=== PATIENT | female | born 1995 | race Hispanic/Latino ===

== ENCOUNTER 2018-04-09 09:20 | Emergency (ER) | payer OTHER, MEDICAID, SELFPAY ==
[2018-04-09 09:31] VITALS: BP 112/65; PULSE 86; RESP 18; TEMP 36.9; O2SAT 100
--- NOTE | 2018-04-09 09:46 | ED_ITS ---
HPI - URI/Sore Throat General Chief Complaint: Upper Respiratory Symptoms Stated Complaint: HEADACHE, LEFT SIDE OF FACE NUMB Time Seen by Provider: 04/09/18 09:32 Source: patient Mode of arrival: ambulatory Limitations: no limitations History of Present Illness HPI Narrative: Patient is a 22-year-old female who presents with on head congestion and left-sided facial numbness. She said last night she is a little dizzy and lightheaded. Today is she also has a little lightheaded. She has got some left-sided ear pain no fevers no sinus pain no sore throat. She has not had any cough. She took some Aleve yesterday and went to sleep. She also is concerned she has been super emotional lately and they thought she may be home test was negative. She is not currently late on her menses. She has no abdominal pain. Related Data Allergies Allergy/AdvReac Type Severity Reaction Status Date / Time No Known Drug Allergies Allergy Verified 04/09/18 09:31 Review of Systems Review of Systems All systems reviewed & are unremarkable except as noted in HPI and below Constitutional Denies chills, Denies fever(s), Denies lethargy and Denies weakness ENT Ears, Nose, Mouth, and Throat: Reports as per HPI Cardiovascular Denies chest pain, Denies irregular heart rhythm, Denies lightheadedness, Denies palpitations, Denies dyspnea, Denies dyspnea on exertion and Denies orthopnea Respiratory Denies cough, Denies dyspnea, Denies dyspnea on exertion and Denies wheezing Gastrointestinal Gastrointestinal: Denies abdominal pain, Denies change in bowel habits, Denies diarrhea, Denies nausea and Denies vomiting Integumentary/Breasts Denies pruritus, Denies erythema, Denies rash and Denies wounds Neurologic Denies weakness Endocrine Denies palpitations Allergic/Immunologic Denies wheezing [facility] Medical History Healthy adult (Acute) Social History Smoking Status: Never smoker Exam Initial Vital Signs Initial Vital Signs: Vital Signs Temperature 98.5 F 04/09/18 09:31 Pulse Rate 86 04/09/18 09:31 Respiratory Rate 18 04/09/18 09:31 Blood Pressure 112/65 04/09/18 09:31 Pulse Oximetry 100 04/09/18 09:31 Const General: cooperative, healthy appearing, comfortable and well developed Orientation: alert, awake and oriented x3 HENMT Head: normal to inspection and normocephalic Ears: hearing grossly normal bilaterally and TM's normal bilaterally Nose: external nose normal Face and sinus: normal facial exam, sinuses nontender and face symmetric Mouth: oral mucosae normal Throat: posterior oropharynx normal, tonsils normal and uvula midline Eyes General: appearance normal, both eyes and all related structures Neck Neck: normal visual inspection, full ROM and no meningeal signs Chest Chest: normal inspection of the chest Resp Effort & Inspection: normal respiratory effort, able to speak in complete sentences, no respiratory distress and no use of accessory muscles Auscultation: clear to auscultation bilaterally, no rales, no rhonchi and no wheezes Cardio Rate: regular rate Rhythm: regular rhythm Heart Sounds: no click, no gallops, no murmurs and no rubs Pulses: normal peripheral pulses Skin General: no rashes or lesions noted, No jaundice and No petechiae Neuro General: alert, awake and oriented x3 Cranial Nerves: CN's II-XI intact bilaterally Course Vital Signs - 8 hr 04/09/18 09:31 Temperature 98.5 F Pulse Rate 86 Respiratory Rate 18 Blood Pressure 112/65 Pulse Oximetry 100 MDM - URI/Sore Throat Lab Data Attestation: I reviewed the patient's lab results. Point of Care Testing Test Results Negative Urine Dip Bedside Urine Glucose Negative Bedside Urine Bilirubin - Negative Bedside Urine Ketone - Negative Urine Specific [place] 1.010 Bedside Urine Occult Blood - Negative Bedside Urine pH 6.0 Bedside Urine Protein - Negative Bedside Urine Urobilinogen - Negative Bedside Urine Nitrite - Negative Bedside Urine Leukocytes - Negative Esterase Urine negative POC urine negative Discharge Plan Departure Patient Disposition: Home Clinical Impression: Acute viral syndrome Instructions: DI for Viral Upper Respiratory Infection -- Adult Activity Restrictions/Additional Instructions: *You have been diagnosed with viral syndrome *What to do: At this time no antibiotics indicated. Let this run its course. Dehydrated fever control. If continuing to have symptoms after 7 days may require further intervention. *Continue to take medications as directed *Follow up with your primary care provider in 2-3 days *Return to ER if you should have persistent symptoms, fever not controlled or any new, worsening or concerning symptoms
--- NOTE | 2018-04-11 15:07 | PC.NURSE ---
pt states she was feeling a little better, mostly the same but has a follow up appt. pt also inquired about std testing, i explained we do testing and if she can't get into her pcp and is having symptoms or concern that we can help with testing and and exam.
== END 2018-04-09 10:00 | disposition home or self-care (01) ==
PROVIDERS: Emergency Provider Emergency Medicine
DX: B34.9 Viral infection, unspecified (principal)
CPT/HCPCS: 81003; 81025; 99282; 99283

== ENCOUNTER 2018-04-12 08:53 | Emergency (ER) | payer OTHER, MEDICAID, SELFPAY ==
--- NOTE | 2018-04-12 09:01 | ED.CHESTPAIN ---
HPI - Chest Pain General Chief Complaint: Chest Pain Stated Complaint: tightness chest, left side face tingling Time Seen by Provider: 04/12/18 09:01 Source: patient Mode of arrival: ambulatory Limitations: no limitations History of Present Illness HPI narrative: Patient complains of chest pain on and off since yesterday. She states she has also had tingling in her face and left arm and yesterday had some pain in her neck and left arm. She states she has never had symptoms like this before. Patient states she has been nauseated for a couple days, and that this is been stressing her out. She states she has also had the stress at work, and she is worried about a doctor's appointment that she has on the during which she will be tested for STDs. She states she thinks she may be having some anxiety, and has been feeling nervous. She denies any history of cardiac issues. She states that there is no family history of MIs at a young age. No history in the patient or family of DVT or PE. Patient denies any actual vomiting or diarrhea, and states that her nausea is much better today. She has had no cough, shortness of breath, or other upper respiratory symptoms. No abdominal pain. Patient states she is otherwise healthy; no diabetes, hypertension, or smoking. No other complaints at this time. Severity scale (1-10): 2 Quality: dull Pain radiation: LUE Relieving factors: nothing Exacerbating factors: nothing Context: other ( See above) Related Data Previous Rx's Medication Instructions Recorded diazepam [Valium] 2 mg PO BID-QID PRN #7 tab 04/12/18 Allergies Allergy/AdvReac Type Severity Reaction Status Date / Time No Known Drug Allergies Allergy Verified 04/12/18 09:06 Review of Systems Review of Systems All systems reviewed & are unremarkable except as noted in HPI and below Constitutional Denies chills, Denies fever(s), Denies lethargy and Denies weakness Eyes Denies change in vision, Denies eye discharge, Denies irritation and Denies loss of vision ENT Ears, Nose, Mouth, and Throat: Denies change in voice, Denies neck pain and Denies sore throat Cardiovascular Reports chest pain, Denies irregular heart rhythm, Denies lightheadedness, Denies palpitations, Denies dyspnea, Denies dyspnea on exertion and Denies orthopnea Respiratory Denies cough, Denies dyspnea, Denies dyspnea on exertion and Denies wheezing Gastrointestinal Gastrointestinal: Denies abdominal pain, Denies change in bowel habits, Denies diarrhea, Denies nausea and Denies vomiting Genitourinary Denies hematuria, Denies flank pain, Denies urinary incontinence and Denies urinary urgency Musculoskeletal Denies neck pain Integumentary/Breasts Denies pruritus, Denies erythema, Denies rash and Denies wounds Neurologic Denies confusion, Denies loss of vision and Denies weakness Psychiatric Denies anxiety, Denies confusion, Denies depression, Denies homicidal ideation and Denies suicidal ideation Endocrine Denies palpitations Hematologic/Lymphatic Denies easy bruising Allergic/Immunologic Denies wheezing [facility] Medical History Healthy adult (Acute) Surgical History No pertinent past surgical history (Acute) Social History Smoking Status: Never smoker Exam Initial Vital Signs Initial Vital Signs: Vital Signs Temperature 98.6 F 04/12/18 09:02 Pulse Rate 76 04/12/18 09:02 Respiratory Rate 20 04/12/18 09:02 Blood Pressure 123/83 04/12/18 09:02 Pulse Oximetry 97 04/12/18 09:02 Const General: cooperative and well developed Nutritional Appearance: well nourished Orientation: alert, awake, oriented x3 and not confused [facility] Head: normocephalic and atraumatic Ears: external ears normal Nose: external nose normal and No nasal discharge Face and sinus: face symmetric Mouth: moist mucous membranes Teeth and gingiva: dentition normal Eyes General: appearance normal, both eyes and all related structures Eyelids: eyelids normal Conjunctivae: conjunctivae normal Sclera: sclerae normal Pupils: PERRL EOM: EOM intact bilaterally Neck Neck: normal visual inspection, trachea midline, No lymphadenopathy, No midline deformity and No JVD Lymphatic: No lymphedema Chest Chest: normal inspection of the chest Resp Effort & Inspection: normal respiratory effort, able to speak in complete sentences, no respiratory distress and no use of accessory muscles Auscultation: clear to auscultation bilaterally, no rales, no rhonchi and no wheezes Cardio Rate: regular rate Rhythm: regular rhythm Heart Sounds: no click, no gallops, no murmurs and no rubs Pulses: normal peripheral pulses GI Inspection: non-distended Palpation: soft, no hepatosplenomegaly, No guarding, No pulsatile mass and No tender Back/Spine/Pelvis Back: No CVA tenderness Cervical Spine: cervical ROM normal and No pain with cervical ROM Thoracic/Lumbar Spine: thoracic and lumbar spine normal to inspection Skin General: no rashes or lesions noted, No jaundice and No petechiae Neuro General: alert, oriented x3, gait normal and no focal motor deficits Speech: speech normal Extrem General: full ROM, no clubbing, cyanosis or edema, no pedal edema and no calf tenderness Psych Appearance: well kempt Mental Status: mental status grossly normal Attitude: cooperative Thought Content: normal and suicidality Judgment: judgment good Course Course Narrative: Patient was young, healthy, and had no risk factors for coronary artery disease. Additionally, she did not have any symptoms or findings consistent with DVT or PE. She was hemodynamically stable, and EKG was unremarkable. I did discuss with the patient that the chances of any of the very serious causes of chest pain as a reason for the patient's symptoms are very low. I did discuss with the patient that we can do a short course of something as needed for anxiety, and the patient can discuss with her primary doctor, the potential need for anxiolytics on a chronic basis, should the symptoms persist. However, at this point in time, as symptoms have been short-lived and are new, and I do not feel the patient needs any long-term intervention initiated from the emergency department. Vital Signs - 8 hr 04/12/18 09:02 Temperature 98.6 F Pulse Rate 76 Respiratory Rate 20 Blood Pressure 123/83 Pulse Oximetry 97 [facility] - Chest Pain Medical Records Data Attestation: I reviewed the patient's medical records. ECG Data Attestation: I personally reviewed and interpreted this ECG as follows: ( see below) Interpretation: 12 lead EKG performed on April 12, 2018 at 9:05 a.m., as follows: Mildly irregular ventricular rhythm with a rate 73 beats per minute. [place] interval 158 millisecond QRS duration 88 millisecond QTC interval 402 millisecond no ectopy in summary, normal sinus rhythm with sinus arrhythmia; no evidence of ischemia; borderline EKG as interpreted by ED MD. MDM Narrative Medical decision making narrative: I felt this patient was stable for discharge home. We have discussed outpatient management of symptoms, as well as the usual indications for return. Discharge Plan Departure Patient Disposition: Home Clinical Impression: Chest pain, Anxiety Instructions: DI for Anxiety -- Adult, DI for Chest Pain Activity Restrictions/Additional Instructions: Please follow-up with your doctor, as scheduled. Prescriptions: New diazepam [Valium] 2 mg tablet 2 mg PO BID-QID PRN (Reason: anxiety) Qty: 7 RF: 0
[2018-04-12 09:02] VITALS: BP 123/83; PULSE 76; RESP 20; TEMP 37; O2SAT 97; BMI 24.9
--- NOTE | 2018-04-12 09:23 | ED_ITS ---
HPI - Chest Pain General Chief Complaint: Chest Pain Stated Complaint: tightness chest, left side face tingling Time Seen by Provider: 04/12/18 09:01 Source: patient Mode of arrival: ambulatory Limitations: no limitations History of Present Illness HPI narrative: Patient complains of chest pain on and off since yesterday. She states she has also had tingling in her face and left arm and yesterday had some pain in her neck and left arm. She states she has never had symptoms like this before. Patient states she has been nauseated for a couple days, and that this is been stressing her out. She states she has also had the stress at work , and she is worried about a doctor's appointment that she has on the during which she will be tested for STDs. She states she thinks she may be having some anxiety, and has been feeling nervous. She denies any history of cardiac issues. She states that there is no family history of MIs at a young age. No history in the patient or family of DVT or PE. Patient denies any actual vomiting or diarrhea, and states that her nausea is much better today. She has had no cough, shortness of breath, or other upper respiratory symptoms. No abdominal pain. Patient states she is otherwise healthy; no diabetes, hypertension, or smoking. No other complaints at this time. Severity scale (1-10): 2 Quality: dull Pain radiation: LUE Relieving factors: nothing Exacerbating factors: nothing Context: other ( See above) Related Data Previous Rx's Medication Instructions Recorded diazepam [Valium] 2 mg PO BID-QID PRN #7 tab 04/12/18 Allergies Allergy/AdvReac Type Severity Reaction Status Date / Time No Known Drug Allergies Allergy Verified 04/12/18 09:06 Review of Systems Review of Systems All systems reviewed & are unremarkable except as noted in HPI and below Constitutional Denies chills, Denies fever(s), Denies lethargy and Denies weakness Eyes Denies change in vision, Denies eye discharge, Denies irritation and Denies loss of vision ENT Ears, Nose, Mouth, and Throat: Denies change in voice, Denies neck pain and Denies sore throat Cardiovascular Reports chest pain, Denies irregular heart rhythm, Denies lightheadedness, Denies palpitations, Denies dyspnea, Denies dyspnea on exertion and Denies orthopnea Respiratory Denies cough, Denies dyspnea, Denies dyspnea on exertion and Denies wheezing Gastrointestinal Gastrointestinal: Denies abdominal pain, Denies change in bowel habits, Denies diarrhea, Denies nausea and Denies vomiting Genitourinary Denies hematuria, Denies flank pain, Denies urinary incontinence and Denies urinary urgency Musculoskeletal Denies neck pain Integumentary/Breasts Denies pruritus, Denies erythema, Denies rash and Denies wounds Neurologic Denies confusion, Denies loss of vision and Denies weakness Psychiatric Denies anxiety, Denies confusion, Denies depression, Denies homicidal ideation and Denies suicidal ideation Endocrine Denies palpitations Hematologic/Lymphatic Denies easy bruising Allergic/Immunologic Denies wheezing [facility] Medical History Healthy adult (Acute) Surgical History No pertinent past surgical history (Acute) Social History Smoking Status: Never smoker Exam Initial Vital Signs Initial Vital Signs: Vital Signs Temperature 98.6 F 04/12/18 09:02 Pulse Rate 76 04/12/18 09:02 Respiratory Rate 20 04/12/18 09:02 Blood Pressure 123/83 04/12/18 09:02 Pulse Oximetry 97 04/12/18 09:02 Const General: cooperative and well developed Nutritional Appearance: well nourished Orientation: alert, awake, oriented x3 and not confused [facility] Head: normocephalic and atraumatic Ears: external ears normal Nose: external nose normal and No nasal discharge Face and sinus: face symmetric Mouth: moist mucous membranes Teeth and gingiva: dentition normal Eyes General: appearance normal, both eyes and all related structures Eyelids: eyelids normal Conjunctivae: conjunctivae normal Sclera: sclerae normal Pupils: PERRL EOM: EOM intact bilaterally Neck Neck: normal visual inspection, trachea midline, No lymphadenopathy, No midline deformity and No JVD Lymphatic: No lymphedema Chest Chest: normal inspection of the chest Resp Effort & Inspection: normal respiratory effort, able to speak in complete sentences, no respiratory distress and no use of accessory muscles Auscultation: clear to auscultation bilaterally, no rales, no rhonchi and no wheezes Cardio Rate: regular rate Rhythm: regular rhythm Heart Sounds: no click, no gallops, no murmurs and no rubs Pulses: normal peripheral pulses GI Inspection: non-distended Palpation: soft, no hepatosplenomegaly, No guarding, No pulsatile mass and No tender Back/Spine/Pelvis Back: No CVA tenderness Cervical Spine: cervical ROM normal and No pain with cervical ROM Thoracic/Lumbar Spine: thoracic and lumbar spine normal to inspection Skin General: no rashes or lesions noted, No jaundice and No petechiae Neuro General: alert, oriented x3, gait normal and no focal motor deficits Speech: speech normal Extrem General: full ROM, no clubbing, cyanosis or edema, no pedal edema and no calf tenderness Psych Appearance: well kempt Mental Status: mental status grossly normal Attitude: cooperative Thought Content: normal and suicidality Judgment: judgment good Course Course Narrative: Patient was young, healthy, and had no risk factors for coronary artery disease. Additionally, she did not have any symptoms or findings consistent with DVT or PE. She was hemodynamically stable, and EKG was unremarkable. I did discuss with the patient that the chances of any of the very serious causes of chest pain as a reason for the patient's symptoms are very low. I did discuss with the patient that we can do a short course of something as needed for anxiety, and the patient can discuss with her primary doctor, the potential need for anxiolytics on a chronic basis, should the symptoms persist. However, at this point in time, as symptoms have been short- lived and are new, and I do not feel the patient needs any long-term intervention initiated from the emergency department. Vital Signs - 8 hr 04/12/18 09:02 Temperature 98.6 F Pulse Rate 76 Respiratory Rate 20 Blood Pressure 123/83 Pulse Oximetry 97 [facility] - Chest Pain Medical Records Data Attestation: I reviewed the patient's medical records. ECG Data Attestation: I personally reviewed and interpreted this ECG as follows: ( see below) Interpretation: 12 lead EKG performed on April 12, 2018 at 9:05 a.m., as follows: Mildly irregular ventricular rhythm with a rate 73 beats per minute. [place] interval 158 millisecond QRS duration 88 millisecond QTC interval 402 millisecond no ectopy in summary, normal sinus rhythm with sinus arrhythmia; no evidence of ischemia ; borderline EKG as interpreted by ED MD. MDM Narrative Medical decision making narrative: I felt this patient was stable for discharge home. We have discussed outpatient management of symptoms, as well as the usual indications for return. Discharge Plan Departure Patient Disposition: Home Clinical Impression: Chest pain, Anxiety Instructions: DI for Anxiety -- Adult, DI for Chest Pain Activity Restrictions/Additional Instructions: Please follow-up with your doctor, as scheduled. Prescriptions: New diazepam [Valium] 2 mg tablet 2 mg PO BID-QID PRN (Reason: anxiety) Qty: 7 RF: 0
[2018-04-12 09:34] VITALS: BP 106/64; PULSE 84; RESP 18; O2SAT 100
--- NOTE | 2018-04-14 14:47 | PC.NURSE ---
No answer for followup call
== END 2018-04-12 09:36 | disposition home or self-care (01) ==
PROVIDERS: Emergency Provider Emergency Medicine
DX: F41.9 Anxiety disorder, unspecified (principal); R07.89 Other chest pain
CPT/HCPCS: 93005; 99283

== ENCOUNTER → 2019-05-07 10:55 | Outpatient (CLI) | payer OTHER, SELFPAY ==
[2019-05-07 12:33] LABS: Hemoglobin 12.2 g/dL (12.0-16.0)
[2019-05-07 12:46] LABS: GTT (PREG) 1 Hour PP 50gm Dose 106 mg/dL (76-139)
== END ==
DX: Z34.02 Encounter for supervision of normal first pregnancy, second trimester (principal)
CPT/HCPCS: 82950; 85014; 85018

== ENCOUNTER → 2019-06-25 13:38 | Outpatient (CLI) | payer OTHER, SELFPAY ==
[2019-06-29 13:11] LABS: HSV 1 IgM Screen Negative (Negative); HSV 2 IgM Screen Negative (Negative)
== END ==
PROVIDERS: Visit Provider Obstetrics & Gynecology
DX: N89.8 Other specified noninflammatory disorders of vagina (principal); N90.89 Other specified noninflammatory disorders of vulva and perineum
CPT/HCPCS: 36415; 86695; 86696; 87255

== ENCOUNTER → 2019-07-06 14:30 | Outpatient (CLI) | payer OTHER, SELFPAY ==
[2019-07-07 08:28] LABS: Strep Grp B PCR NEG for Grp B Strep
== END ==
PROVIDERS: Visit Provider Obstetrics & Gynecology
DX: Z34.03 Encounter for supervision of normal first pregnancy, third trimester (principal); Z3A.36 36 weeks gestation of pregnancy
CPT/HCPCS: 87653

== ENCOUNTER 2019-07-15 07:31 | Observation (INO) | payer OTHER, SELFPAY ==
[2019-07-15 08:44] LABS: Bacteria Urine None Seen
[2019-07-15 08:49] LABS: Appearance Urine UA CLEAR; Bilirubin Urine UA NEGATIVE (NEGATIVE); Color Urine UA YELLOW; Glucose Urine UA NEGATIVE (Negative); Ketones Urine UA NEGATIVE (NEGATIVE); Leukocyte Esterase Urine UA NEGATIVE (NEGATIVE); Nitrite Urine UA NEGATIVE (Negative); Occult Blood Urine UA 3+ (Negative); Protein Urine UA NEGATIVE (Negative); Urobilinogen Urine UA 0.2 E.U./dL (0.2)
[2019-07-15 08:55] LABS: Culture Indicated Urine Cult Not Indicated; RBC Urine 5-10/HPF (0-5/HPF); Squamous Epithelial Cell Urine 10-30 /HPF (0-5/HPF); WBC Urine 0-1/HPF (0-5/HPF)
[2019-07-15] MEDS: NIFEdipine 10 MG CAPSULE PO ×4 (08:56→10:02)
== END 2019-07-15 12:05 | disposition home or self-care (01) ==
DX: O46.93 Antepartum hemorrhage, unspecified, third trimester (principal); Z3A.37 37 weeks gestation of pregnancy
CPT/HCPCS: 59025; 59050; 81001; G0378; G0379

== ENCOUNTER 2019-07-15 15:27 | Inpatient (IN) | payer OTHER, SELFPAY ==
--- NOTE | 2019-07-15 16:51 | P.HPOB_ITS ---
OB HPI Date/Time Date of admission: 07/15/19 Date Patient Seen: 07/15/19 Time Patient Seen: 17:21 History of Present Condition Chief complaint: observation of labor : 1 Para: 0 Estimated Date of Delivery: 08/01/19 Estimated Gestational Age (weeks): 37w4d Narrative: Hannah Vail is a 24 year old at 37 weeks and 4 days gestation. She was seen in the center earlier today due to regular contractions. She received nifedipine but contractions persisted though she was sent home. She reports a gush of fluid at approximately 2:10 p.m. today. Contractions have been increasing in intensity since she left the center this morning. has been uncomplicated. She transferred care from [facility] at 25 weeks. History of Present care: good care, initiated at week # (12) and pounds weight gain (42) Dating criteria: based on 1st trimester US only Ultrasounds: normal mid trimester US Obstetrical complications: none Medical complications: none Preadmission Labs Blood type: O (+) positive -: Antibody screen: negative, GBS status: negative, HBsAG: negative, HIV: negative, HSV 1: negative, HSV 2: negative and RPR/VDLR: negative -: Rubella: immune HCT: 35 HCAB: negative PAP: Normal Quad screen: Normal Urine: Negative 1 hr GTT: 106 Evaluation Evaluation Baseline heart rate: 120 Variability: Moderate (11-25) monitor accelerations: Present monitor decelerations: Absent Contraction Frequency (minutes): 2 Uterine Contraction Intensity: Strong/Firm Category of Tracing: I Cervical dilation (cm): 1 Cervical effacement (%): 100 station: 0 Non-invasive Membranes Rupture Test: positive [facility] Medical History Atypical squamous cells cannot exclude high grade squamous intraepithelial lesion (ASC-H) on Papanicolao smear (Acute ~2016) Headache (Chronic ~2019) Healthy adult (Acute) Surgical History Anesthesia (Resolved) No pertinent past surgical history (Acute) [place] teeth removed (Resolved) Family History Family/Other Cancer Diabetes mellitus Depression Family/Other Cancer Depression Anxiety Grandmother Diabetes mellitus Depression Anxiety Hypertension Social History marital status: household members: spouse education level: college (Trade School : [employer] ) special marguerite needs: No leisure activities: exercise (3X/week) Smoking Status: Never smoker Meds Home Medications and Allergies Home Medications Medication Instructions Recorded Confirmed Type calcium carbonate 600 mg calcium 600 mg PO DAILY 04/20/19 04/23/19 History (1,500 mg) tablet prenat.vits,theodore,yrb-nesl-bunbk 1 tab PO DAILY 04/20/19 04/23/19 History omeprazole 20 mg capsule,delayed 20 mg PO DAILY #90 cap 06/17/19 Rx release Allergies Allergy/AdvReac Type Severity Reaction Status Date / Time No Known Drug Allergies Allergy Verified 05/21/19 09:28 Review of Systems Constitutional Constitutional: Denies fever(s) and Denies headache(s) ENT Ears, Nose, Mouth, and Throat: No headache(s) Cardiovascular Cardiovascular: Reports leg swelling Gastrointestinal Gastrointestinal: Reports nausea and Reports vomiting Neurologic Neurologic: Denies headache(s) Exam Vital Signs (past 8 hours): BP 139/95 P 84 Const General: healthy appearing and comfortable HENMT Head: normal to inspection Ears: hearing grossly normal bilaterally Nose: external nose normal Face and sinus: normal facial exam Mouth: oral mucosae normal Eyes General: appearance normal, both eyes and all related structures Neck Neck: normal visual inspection Resp Effort & Inspection: normal respiratory effort Auscultation: clear to auscultation bilaterally Cardio Rate: regular rate Rhythm: regular rhythm Heart Sounds: no murmurs GI Other: Gravid External Female Exam: external appearance normal Manual OB Exam: dilated 1, effaced fully and station 0 Presentation: vertex Estimated Weight (lbs): 7 Amniotic Fluid: clear Back/Spine/Pelvis Back: normal to inspection Skin General: no rashes or lesions noted Extrem General: normal to inspection, no pedal edema and edema (1+ bilaterally) Assessment and Plan Assessment and Plan Assessment and Plan narrative: 24-year-old at 37 weeks and 4 days gestation with SROM at approximately 2:10 p.m. today. AmniSure positive in the Center with continued leaking of clear fluid. GBS negative. Admit for labor, patient desires epidural eventually Expectant management, anticipate
[2019-07-15] MEDS: LACTATED RINGERS 1,000 ML 100 ML IV ×2 (19:02→20:03)
[2019-07-15] MEDS: OXYTOCIN 10 UNIT/ML VIAL 20 UNIT (20:55)
--- NOTE | 2019-07-15 21:13 | PM.OBPRVD ---
Labor & Delivery Delivery date: 07/15/19 Delivery monitor: external FHT Route of delivery: L&D Laceration Description: Vaginal - 2nd Degree Delivery repair: vicryl Estimated blood loss (mL): 300 Anesthesia type: Epidural Narrative: Patient is a 24-year-old at 37 weeks and 4 days who gave on 07/15/2019 at 20:38. MIKE: 08/01/2019 Hospital problems: 37 weeks of STAGE I: Labor Contractions began at home at approximately 5:00 a.m.. Patient presented in active labor after spontaneous rupture of membranes at approximately 2:36 p.m. at home with clear fluid. She received an epidural with adequate pain control and was complete at 19:50. Stage I duration 14 hours and 50 minutes. STAGE II: Delivery Spontaneous vaginal delivery occurred 20:38. was vertex and CARLOS. was immediately placed on mother's abdomen. Cord was clamped and cut after 1 minute delay. Apgars were 9 and 9, no resuscitation of the required. Stage II duration 48 minutes. STAGE III: Placenta/Cord Placenta delivered at 8:47 p.m. after active management and appeared intact with a three-vessel cord. Pitocin bolus given after delivery of placenta. A second-degree vaginal laceration was repaired in the usual fashion with 4 0 Vicryl. Hemostasis assured. Fundus firm below umbilicus. EBL: 300 mL. Needle and sponge counts were correct. The vagina was inspected and no items were left in situ. Patient was doing well with Marco A, her and at bedside. Baby 1: Infant gender: Male Presentation: vertex position: Right Occiput Anterior Placenta delivery description: Spontaneous cord vessel description: 3 Vessels score (1 min): 9 score (5 min): 9
[2019-07-15 23:35] LABS: Add Manual Diff / Slide Review NO; Basophils Absolute Auto 100 /uL (0-100); Basophils Percent Auto 0.4 % (0-2); Eosinophils Absolute Auto 0 /uL (0-450); Eosinophils Percent Auto 0.2 % (2-4); Hematocrit 41.4 % (36-46); Hemoglobin 14.1 g/dL (12.0-16.0); Lymphocytes Absolute Auto 1900 /uL (1100-4500); Lymphocytes Percent Auto 11.1 % (25-40); Mean Corpuscular Hemoglobin 32.4 PG (26-34); Mean Corpuscular Volume 95.3 fL (80-100); Monocytes Absolute Auto 600 /uL (0-900); Monocytes Percent Auto 3.6 % (3-14); Neutrophils Absolute Auto 14100 /uL (1500-7000); Neutrophils Percent Auto 84.7 % (50-75); Platelet Count 165 X10^3/uL (150-400); Red Blood Cell Count 4.34 X10^6/uL (4.0-5.2); Red Cell Distribution Width 13.1 % (11.6-14.8); White Blood Cell Count 16.7 X10^3/uL (4.5-11.0)
[2019-07-16 05:17] VITALS: BP 139/95
[2019-07-16 07:08] LABS: Hematocrit 32.1 % (36-46); Hemoglobin 11.3 g/dL (12.0-16.0)
[2019-07-16] MEDS: PRENATAL VIT,CALC/IRON/FOLIC 1 TABLET 1 TAB PO (08:54)
[2019-07-16] MEDS: LANOLIN OINT 7 GM 1 APPLIC TOP (08:54)
[2019-07-16] MEDS: DOCUSATE 100 MG CAPSULE PO (08:55)
[2019-07-16] MEDS: IBUPROFEN 600 MG TABLET PO ×2 (08:55→21:28)
--- NOTE | 2019-07-16 12:25 | P.PNOB_ITS ---
Subjective - OB Subjective Patient comments: no complaints [place] baby status: doing well [place] feeding status: exclusively breast feeding Narrative: Post rapid spontaneous vaginal delivery no problems Date Patient Seen: 07/16/19 Time Patient Seen: 12:30 Interval history: Patient is status post rapid spontaneous vaginal delivery without difficulties. she has done well. She remains afebrile with stable vital signs and has been progressively taking oral fluids and ambulating. Pediatricians is the baby is doing fine. Patient desires early discharge. Exam Vital Signs (past 8 hours): - 07/16/19 05:17 Blood Pressure 139/95 H Narrative Exam Narrative: Fundus is U minus two Lochia scant Perineum is intact without ecchymosis Objective Labs Result Diagrams: 07/16/19 06:25 Labs: Laboratory Results - last 24 hr 07/15/19 07/15/19 07/16/19 16:45 16:45 06:25 WBC 16.7 H RBC 4.34 Hgb 14.1 11.3 L Hct 41.4 32.1 L MCV 95.3 MCH 32.4 MCHC 34.0 RDW 13.1 Plt Count 165 Neut % (Auto) 84.7 H Lymph % (Auto) 11.1 L [place] % (Auto) 3.6 Eos % (Auto) 0.2 L Baso % (Auto) 0.4 Neut # (Auto) 78702 H Lymph # (Auto) 1900 [place] # (Auto) 600 Eos # (Auto) 0 Baso # (Auto) 100 Blood Type O Positive Antibody Screen Negative Assessment & Plan Plan day: 1 plan OB: routine care Time Spent With Patient Time: Total time spent is greater than 50% in coordination of care (as documented) at patient's floor/unit and/or counseling patient: Time with patient: less than 15 minutes
--- NOTE | 2019-07-16 12:32 | P.DS_ITS ---
Discharge Providers Provider Date of admission: 07/15/19 15:27 Discharge Date: 07/16/19 Consults: 07/16/19 21:14 Consult to Radio Interference Expert Routine Comment: Discharge provider: Harjinder Hernandez MD Summary Hospital Course Date Patient Seen: 07/16/19 Time Patient Seen: 12:32 Procedures: Spontaneous vaginal delivery Peripartum Data Infant Delivery Method: Natural Vaginal Laceration description: Perineal - 1st Degree Procedures: Spontaneous vaginal delivery Epidural anesthesia 1st degree tear Status at Discharge Cognitive/behavioral status at discharge: oriented Functional status at discharge: independent ambulation Overall status at discharge: patient is progressing back to baseline Time Spent with Patient Time attestation: Total time spent providing and/or coordinating discharge services: Time spent: Less than 30 minutes Objective Labs Result Diagrams: 07/16/19 06:25 Labs: Laboratory Results - last 24 hr 07/15/19 07/15/19 07/16/19 16:45 16:45 06:25 WBC 16.7 H RBC 4.34 Hgb 14.1 11.3 L Hct 41.4 32.1 L MCV 95.3 MCH 32.4 MCHC 34.0 RDW 13.1 Plt Count 165 Neut % (Auto) 84.7 H Lymph % (Auto) 11.1 L [place] % (Auto) 3.6 Eos % (Auto) 0.2 L Baso % (Auto) 0.4 Neut # (Auto) 88971 H Lymph # (Auto) 1900 [place] # (Auto) 600 Eos # (Auto) 0 Baso # (Auto) 100 Blood Type O Positive Antibody Screen Negative Exam Vital Signs (past 8 hours): - 07/16/19 05:17 Blood Pressure 139/95 H Narrative Exam Narrative: Fundus U minus two Lochia scant Perineum intact without ecchymosis Discharge Plan Discharge orders & Medications Discharge Orders: Discharge (Order); Ordered 07/16/19 Ordered By: Harjinder Hernandez Prescriptions: New Rcd-F-Ylqhso Cream 1 applic topical PRN PRN (Reason: Tenderness) Qty: 1 RF: 0 docusate sodium [DOK] 100 mg Capsule 100 mg PO DAILY Qty: 14 RF: 0 Prenatabs Rx 29 mg iron- 1 mg Tablet 1 tab PO DAILY Qty: 60 RF: 0 Dermoplast (with menthol) 20-0.5 % Aerosol 1 spray topical Q1HR PRN (Reason: perineal pain) Qty: 1 RF: 0 ibuprofen 600 mg Tablet 600 mg PO Q6HR PRN (Reason: Pain, Mild (1-3)) Qty: 14 RF: 0 Continued omeprazole 20 mg capsule,delayed release(DR/EC) 20 mg PO DAILY Qty: 90 RF: 0 prenat.vits,theodore,yqq-tkjz-duoic Tablet 1 tab PO DAILY RF: 0 calcium carbonate [Calcium 600] 600 mg calcium (1,500 mg) tablet 600 mg PO DAILY RF: 0 Follow up/Referrals: Harjinder Hernandez MD [Physician] - 1 Month Discharge Health Status Multidrug resistant organism: No MDRO Diet/Activity/Treatments Diet: Diet as Tolerated Skin/Wound/Dressing Care Report to your healthcare provider any signs of infection, such as:: chills, fever, increased pain, unusual drainage and unusual redness Dressing: None Other wound treatment: Keep 1st degree tear clean and dry
[2019-07-16 19:34] VITALS: BP 134/85; PULSE 66; RESP 16; TEMP 36.7
== END 2019-07-16 21:40 | disposition home or self-care (01) | DRG 807 ==
PROVIDERS: Visit Provider Family Medicine
DX: O42.02 Full-term premature rupture of membranes, onset of labor within 24 hours of rupture (principal); O70.1 Second degree perineal laceration during delivery; Z37.0 Single live birth; Z3A.37 37 weeks gestation of pregnancy
CPT/HCPCS: 01967; 36415; 59025; 59050; 59410; 81001; 85014; 85018; 85025; 86850; 86900; 86901; G0378; G0379; J2590

== ENCOUNTER → 2020-01-10 13:28 | Outpatient (CLI) | payer OTHER, SELFPAY ==
--- NOTE | 2020-01-10 13:33 | DI.RAD.S_ITS ---
PROCEDURE: XR LUMBAR SPINE 2-3V INDICATIONS: BACK INJURY TECHNIQUE: 3 views of the lumbar spine were acquired. COMPARISON: None. FINDINGS: Bones: There are 5 xie-qko-upplsof lumbar type vertebral bodies of normal height and alignment other than a very mild levoscoliosis centered at L4. Vertebral body heights maintained. No significant degenerative changes.. Soft tissues: Overlying bowel gas pattern is normal. No suspicious soft tissue calcifications. IMPRESSION: No acute finding. Dictated by: Chaz Garza M.D. on 01/10/2020 at 14:00 Approved by: Chaz Garza M.D. on 01/10/2020 at 14:01
--- NOTE | 2020-01-10 13:33 | DI.RAD.S_ITS ---
PROCEDURE: XR CERVICAL SPINE 2V OR 3V INDICATIONS: Neck injury TECHNIQUE: 3 view(s) of the cervical spine were acquired. COMPARISON: None. FINDINGS: Bones: No fractures or dislocations to the T1 level. The lateral masses of C1 appear intact on the odontoid view. No suspicious bony lesions. Soft tissues: No prevertebral soft tissue swelling. IMPRESSION: No acute finding. Dictated by: Chaz Garza M.D. on 01/10/2020 at 13:57 Approved by: Chaz Garza M.D. on 01/10/2020 at 13:59
--- NOTE | 2020-01-10 13:33 | DI.RAD.S_ITS ---
PROCEDURE: XR THORACIC SPINE 3V INDICATIONS: BACK PAIN TECHNIQUE: Two views of the thoracic spine were acquired. COMPARISON: None. FINDINGS: Bones: Very mild dextroscoliosis with approximately 5 degree Morgan angle centered at T9, potentially positional. Otherwise normal alignment. Vertebral body heights maintained. There is no fracture demonstrated. No degenerative changes. Included ribs are intact. Soft tissues: No paravertebral stripe thickening. Included lungs are clear. IMPRESSION: No acute finding. Dictated by: Chaz Garza M.D. on 01/10/2020 at 13:59 Approved by: Chaz Garza M.D. on 01/10/2020 at 14:00
== END ==
PROVIDERS: PCP Registered Nurse; Referring Provider Registered Nurse; Visit Provider Registered Nurse
DX: S19.9XXA Unspecified injury of neck, initial encounter (principal); S39.92XA Unspecified injury of lower back, initial encounter; M54.2 Cervicalgia; M54.9 Dorsalgia, unspecified; X58.XXXA Exposure to other specified factors, initial encounter
CPT/HCPCS: 72040; 72072; 72100

== ENCOUNTER → 2020-06-20 12:43 | Outpatient (CLI) | payer OTHER, SELFPAY ==
[2020-06-20 13:43] LABS: Add Manual Diff / Slide Review NO; Basophils Absolute Auto 0 /uL (0-100); Basophils Percent Auto 0.4 % (0-2); Eosinophils Absolute Auto 100 /uL (0-450); Hematocrit 39.1 % (36-46); Hemoglobin 12.7 g/dL (12.0-16.0); Lymphocytes Absolute Auto 2500 /uL (1100-4500); Lymphocytes Percent Auto 33.3 % (25-40); Mean Corpuscular HGB Conc 32.5 % (30-36); Mean Corpuscular Hemoglobin 30.7 PG (26-34); Mean Corpuscular Volume 94.3 fL (80-100); Monocytes Absolute Auto 600 /uL (0-900); Monocytes Percent Auto 7.4 % (3-14); Neutrophils Absolute Auto 4400 /uL (1500-7000); Neutrophils Percent Auto 57.9 % (50-75); Platelet Count 209 X10^3/uL (150-400); Red Blood Cell Count 4.15 X10^6/uL (4.0-5.2); Red Cell Distribution Width 13.1 % (11.6-14.8); White Blood Cell Count 7.5 X10^3/uL (4.5-11.0)
[2020-06-20 14:00] LABS: Alanine Aminotransferase 13 IU/L (<35); Albumin Globulin Ratio 1.4 (1.0-2.8); Alkaline Phosphatase 53 U/L (38-126); Aspartate Aminotransferase 25 IU/L (14-36); BUN Creatinine Ratio 23.9 (6-22); Bilirubin Total 0.2 mg/dL (0.2-1.3); Blood Urea Nitrogen 11 mg/dL (7-17); Calcium 8.7 mg/dL (8.4-10.2); Carbon Dioxide 30 mmol/L (22-32); Chloride 104 mmol/L (98-107); Estimated Glomerular Filt Rate > 60.0 mL/min (>60); Globulin 2.9 g/dL (1.7-4.1); Glucose 92 mg/dL (70-100); HEMOLYSIS < 15 (0-50); Lipase 46 U/L (23-300); Potassium 3.9 mmol/L (3.4-5.1); Sodium 138 mmol/L (137-145); Total Protein 6.9 g/dL (6.3-8.2)
[2020-06-20 14:11] LABS: Erythrocyte Sedimentation Rate 6 MM/HR (0-20)
[2020-06-20 14:17] LABS: Free T4, Direct Thyroxine 1.13 ng/dL (0.78-2.19)
[2020-06-20 14:19] LABS: Pregnancy Test Urine Negative (Negative)
[2020-06-20 14:30] LABS: Thyroid Stimulating Hormone 0.988 uIU/mL (0.47-4.68)
== END ==
PROVIDERS: PCP Registered Nurse; Referring Provider Registered Nurse; Visit Provider Registered Nurse
DX: R10.9 Unspecified abdominal pain (principal); R07.9 Chest pain, unspecified
CPT/HCPCS: 36415; 80053; 81025; 83690; 84439; 84443; 85025; 85651

== ENCOUNTER → 2021-09-24 17:17 | Outpatient (CLI) | payer OTHER, SELFPAY ==
[2021-09-24 18:02] LABS: Add Manual Diff / Slide Review NO; Basophils Absolute Auto 100 /uL (0-100); Basophils Percent Auto 0.8 % (0-2); Eosinophils Absolute Auto 100 /uL (0-450); Eosinophils Percent Auto 0.9 % (2-4); Hematocrit 35.8 % (36-46); Hemoglobin 12.4 g/dL (12.0-16.0); Lymphocytes Absolute Auto 2000 /uL (1100-4500); Lymphocytes Percent Auto 29.1 % (25-40); Mean Corpuscular HGB Conc 34.7 % (30-36); Mean Corpuscular Hemoglobin 31.8 PG (26-34); Mean Corpuscular Volume 91.7 fL (80-100); Monocytes Absolute Auto 400 /uL (0-900); Monocytes Percent Auto 5.7 % (3-14); Neutrophils Absolute Auto 4500 /uL (1500-7000); Neutrophils Percent Auto 63.5 % (50-75); Platelet Count 191 X10^3/uL (150-400); Red Cell Distribution Width 12.9 % (11.6-14.8)
[2021-09-24 18:09] LABS: Appearance Urine UA CLOUDY; Bilirubin Urine UA NEGATIVE (NEGATIVE); Color Urine UA YELLOW; Glucose Urine UA NEGATIVE (Negative); Ketones Urine UA NEGATIVE (NEGATIVE); Leukocyte Esterase Urine UA NEGATIVE (NEGATIVE); Nitrite Urine UA NEGATIVE (Negative); Occult Blood Urine UA TRACE-LYSED (Negative); Protein Urine UA TRACE (Negative); Urobilinogen Urine UA 0.2 E.U./dL (0.2)
[2021-09-24 18:10] LABS: pH Urine UA 7.5 (4.5-8.0)
[2021-09-24 18:39] LABS: Rubella Antibody IgG 34.1 IU/mL (>15)
[2021-09-24 18:46] LABS: Hepatitis B Surface Antigen NEGATIVE s/c (NEGATIVE)
[2021-09-24 19:08] LABS: HIV 1 & 2 Ab/Ag 4th Gen Combo NEGATIVE (NEGATIVE); Hep C Virus Ab w/Reflex Quant NEGATIVE s/c (NEGATIVE)
[2021-09-26 03:17] LABS: RPR Screen Non Reactive (Non Reactive)
[2021-09-26 09:12] LABS: Varicella IgG Antibody 243 index (Immune >165)
== END ==
PROVIDERS: PCP Family Medicine; Referring Provider Obstetrics & Gynecology; Visit Provider Obstetrics & Gynecology
DX: Z34.81 Encounter for supervision of other normal pregnancy, first trimester (principal)
CPT/HCPCS: 36415; 80055; 81003; 86787; 86803; 86850; 86900; 86901; 87389

== ENCOUNTER → 2021-09-27 12:22 | Outpatient (CLI) | payer OTHER, SELFPAY ==
[2021-09-28 08:08] LABS: Candida species Negative (Negative); Gardnerella vaginalis Negative (Negative); Trichomoas vaginalis Negative (Negative)
== END ==
PROVIDERS: PCP Family Medicine; Visit Provider Obstetrics & Gynecology
DX: O26.899 Other specified pregnancy related conditions, unspecified trimester (principal); N89.8 Other specified noninflammatory disorders of vagina
CPT/HCPCS: 87480; 87510; 87660

== ENCOUNTER → 2021-11-20 15:16 | Outpatient (CLI) | payer OTHER, SELFPAY ==
[2021-11-22 20:35] LABS: AFP Value 54.2 ng/mL (.); Gest Age on Col Date 18.6 weeks (.); Insulin Dep Diabetes No (.); OSBR Risk 1IN 9231 (.); Results Report (.); Test Results *Screen Negative* (.)
== END ==
PROVIDERS: PCP Family Medicine; Referring Provider Obstetrics & Gynecology; Visit Provider Obstetrics & Gynecology
DX: Z34.82 Encounter for supervision of other normal pregnancy, second trimester (principal); Z3A.18 18 weeks gestation of pregnancy
CPT/HCPCS: 36415; 82105

== ENCOUNTER → 2021-12-04 10:09 | Outpatient (CLI) | payer OTHER, SELFPAY ==
--- NOTE | 2021-12-04 10:33 | DI.US.S_ITS ---
PROCEDURE: US OB >= 14 WEEKS FETUS INDICATIONS: Anatomy scan OUTSIDE/PRIOR DATING DATA: Last menstrual period (LMP): 07/13/2021. LMP-based estimated date of delivery (MIKE): 04/19/2022. First dating scan (date and location): 12/04/2021, . Estimated date of delivery (MIKE) from first dating scan: 04/16/2022. TECHNIQUE: Real-time scanning was performed of the fetus, with image documentation and biometric measurements. Endovaginal scanning: Not performed. COMPARISON: None. FINDINGS: General: A single living intrauterine gestation is present. Presentation: Transverse. Placenta: Placental position is posterior. Placenta previa is present. Amniotic fluid index: 11.2 cm, normal range is 5-24 cm. Single deepest vertical pocket is 3.8 cm. heart rate: 147 beats per minute. Maternal cervical canal: 6.9 cm long. Normal lower limit is 2.5 cm. biometrics: Biparietal diameter: 5.0 cm, 21 weeks 0 days Head circumference: 18.4 cm, 20 weeks 5 days Abdominal circumference: 15.7 cm, 20 weeks 6 days Femur length: 3.5 cm, 21 weeks 1 day Clinically estimated gestational age: 20 weeks 4 days Composite gestational age from present scan: 21 weeks 0 days Estimated weight and percentile: 391 g, 68th percentile Anatomic survey: Neuro: Ventricles are non-dilated at less than 10 mm. Cisterna magna is normal at 3-11 mm. Cerebellum is normal in size and morphology. Nuchal skin fold: Normal at less than 6 mm between 14-21 weeks gestational age. Face: Nose and lips, facial profile are normal. Spine: No evidence for spina bifida. Heart: 4-chambered heart is present, with normal ventricular outflow tracts. Diaphragm: Diaphragm is intact. Stomach: Left-sided stomach is present. Kidneys: No hydronephrosis. Normal is less than 5 mm in 2nd trimester, less than 7 mm in 3rd trimester. Cord: 3-vessel cord has orthotopic insertion. Bladder: Normal in size. Extremities: All 4 extremities identified. IMPRESSION: 1. Single living intrauterine with gestational age 20 weeks 4 days by LMP. 2. Placenta previa. Recommend follow-up transvaginal ultrasound at or before 32 weeks to assess for resolution and to exclude Vasa previa. 3. Normal 2nd trimester anatomy survey. No anomalies detected at this time. We strive to produce accurate, complete, and clear reports of imaging services. To assist us in improving patient care, this report was composed using standard report templates and voice recognition software. Therefore, it may contain abnormal punctuation, insertions and/or omissions. Occasional wrong-word or sound-alike substitutions may occur. Though we review the report and make efforts to correct it, we do recommend that the report be read carefully in proper context to recognize any text inaccuracies. Dictated by: Jeremiah Garcia M.D. on 12/04/2021 at 14:26 Approved by: Jeremiah Garcia M.D. on 12/04/2021 at 14:36
== END ==
PROVIDERS: PCP Family Medicine; Referring Provider Obstetrics & Gynecology; Visit Provider Obstetrics & Gynecology
DX: Z3A.20 20 weeks gestation of pregnancy (principal); Z34.82 Encounter for supervision of other normal pregnancy, second trimester
CPT/HCPCS: 76811

== ENCOUNTER → 2022-01-15 12:23 | Outpatient (CLI) | payer OTHER, SELFPAY ==
[2022-01-15 14:00] LABS: Hematocrit 35.3 % (36-46); Hemoglobin 12.1 g/dL (12.0-16.0)
[2022-01-15 14:23] LABS: GTT (PREG) 1 Hour PP 50gm Dose 77 mg/dL (76-139)
== END ==
PROVIDERS: PCP Pediatrics; Referring Provider Obstetrics & Gynecology; Visit Provider Obstetrics & Gynecology
DX: Z34.82 Encounter for supervision of other normal pregnancy, second trimester (principal); Z3A.25 25 weeks gestation of pregnancy
CPT/HCPCS: 36415; 82950; 85014; 85018

== ENCOUNTER → 2022-02-13 11:01 | Outpatient (CLI) | payer OTHER, SELFPAY | PROVIDERS: PCP Pediatrics; Visit Provider Obstetrics & Gynecology | DX: Z34.83 Encounter for supervision of other normal pregnancy, third trimester (principal); Z3A.30 30 weeks gestation of pregnancy | CPT/HCPCS: 87086 ==

== ENCOUNTER → 2022-02-27 14:10 | Outpatient (CLI) | payer OTHER, SELFPAY ==
--- NOTE | 2022-02-27 14:11 | DI.US.S_ITS ---
PROCEDURE: US OB LIMITED INDICATIONS: Growth OUTSIDE/PRIOR DATING DATA: Last menstrual period (LMP): 07/13/2021. LMP-based estimated date of delivery (MIKE): 04/19/2022. First dating scan (date and location): 12/04/2021 Estimated date of delivery (MIKE) from first dating scan: 04/16/2022 TECHNIQUE: Real-time scanning was performed of the fetus, with image documentation and biometric measurements. Endovaginal scanning: Non COMPARISON: None. FINDINGS: General: A single living intrauterine gestation is present. Presentation: Breech. Placenta: Placental position is posterior , without previa. Amniotic fluid index: 12.7 cm, normal range is 5-24 cm. Single deepest vertical pocket is 4.5 cm. heart rate: 141 beats per minute. Maternal cervical canal: 4.5 cm long. Normal lower limit is 2.5 cm. biometrics: Biparietal diameter: 8.5 cm, 34 week 2 day Head circumference: 30.6 cm, 34 week 0 day Abdominal circumference: 27.9 cm, 32 week 0 day Femur length: 6.3 cm, 32 week 3 day Clinically estimated gestational age: 32 week 5 day Composite gestational age from present scan: 33 week 1 day Estimated weight and percentile: 1988 g, 34 percentile Other: Not applicable. IMPRESSION: Single live intrauterine consistent with a 33 week 1 day gestation by current ultrasound Low lying posterior placenta is 3.3 cm from the internal os Approved by: Bo Washington M.D. on 02/27/2022 at 17:20
== END ==
PROVIDERS: PCP Family Medicine; Referring Provider Obstetrics & Gynecology; Visit Provider Obstetrics & Gynecology
DX: O26.843 Uterine size-date discrepancy, third trimester (principal); O44.43 Low lying placenta NOS or without hemorrhage, third trimester; Z3A.33 33 weeks gestation of pregnancy
CPT/HCPCS: 76815

== ENCOUNTER 2022-03-06 18:05 | Outpatient (CLI) | payer OTHER, SELFPAY ==
--- NOTE | 2022-03-06 18:38 | PM.OBTRLD ---
Visit Information Visit Information Date of evaluation: 03/06/22 Primary OB Provider: Lisha Corona On-call OB Provider: Ivelisse Ahumada Reason for Evaluation: Yes pre-term labor Vital Signs Vital Signs: BP 108/66, P 76, T 37.2 [facility] Medical History (Updated 03/06/22 @ 18:44 by Ivelisse Ahumada MD) Atypical squamous cells cannot exclude high grade squamous intraepithelial lesion (ASC-H) on Papanicolao smear (~2015) Encounter for supervision of other normal , first trimester Headache (~2018) Healthy adult Migraine Surgical History Anesthesia No pertinent past surgical history [place] teeth removed Family History (Updated 09/17/21 @ 15:01 by Pili Dyson RN) Family/Other Cancer Diabetes mellitus Depression Family/Other Cancer Depression Anxiety Grandmother Diabetes mellitus Depression Anxiety Hypertension Son Allergic eczema Social History marital status: number of children: 1 household members: spouse and children lives independently: Yes housing: condominium pets and animals: No education level: college (Trade School : [employer] ) occupational status: unemployed current occupational exposures/hazards: No special marguerite needs: No travel history: over 6 months ago leisure activities: exercise (3X/week) seatbelt use: always water heater temp set < 120 deg: Yes (Will check) working smoke detector in home: Yes fire extinguisher in home: Yes carbon monox detector in home: Yes firearms in home: Yes firearms unloaded and locked: Yes do you feel safe at home: Yes Smoking Status: Never smoker second hand exposure: No alcohol intake: former substance use type: does not use during the past year weight has: remained stable well-balanced diet: daily or most days daily servings fruits/ve-4 caffeine: Yes (Not since , aware of 200 mg limit) Type(s) of exercise: walking duration: 30-45 minutes/day Review of Systems Review of Systems Narrative: Pt. c/o of some cramping after intercourse today. Some increased frequency of urination. No bleeding, no leakage, no change in discharge. GFM Evaluation Evaluation Baseline heart rate: 135 Variability: Moderate (11-25) monitor accelerations: Present Monitor Decelerations: Absent Contraction Frequency (minutes): 5 Uterine Contraction Intensity: Mild Category of Tracing: Reactive Status: Category l Cervical dilation (cm): 0 Cervical effacement (%): 40 station: -4 Diagnosis, Plan/Disposition Final Diagnosis (1) Uterine irritability: Status: Acute (2) 33 weeks gestation of : Status: Acute Plan/Disposition Plan: Urine will be checked. Push fluids. Rest. No more intercourse until 36 week gestation. OB Disposition: home
[2022-03-06 19:04] LABS: Appearance Urine UA CLEAR; Bilirubin Urine UA NEGATIVE (NEGATIVE); Color Urine UA YELLOW; Glucose Urine UA NEGATIVE (Negative); Ketones Urine UA NEGATIVE (NEGATIVE); Leukocyte Esterase Urine UA NEGATIVE (NEGATIVE); Nitrite Urine UA NEGATIVE (Negative); Occult Blood Urine UA NEGATIVE (Negative); Protein Urine UA NEGATIVE (Negative); Specific Gravity Urine UA <=1.005 (1.000-1.035); Urobilinogen Urine UA 0.2 E.U./dL (0.2)
[2022-03-06 19:10] LABS: Bacteria Urine None Seen; Culture Indicated Urine Cult Not Indicated; RBC Urine None Seen (0-5/HPF); Renal Epithelial Cells Urine 1-5/HPF (0-1/HPF); Squamous Epithelial Cell Urine 10-30 /HPF (0-5/HPF); WBC Urine None Seen (0-5/HPF)
== END 2022-03-06 19:23 | disposition home or self-care (01) ==
LOC: OB 03-07 11:04
PROVIDERS: PCP Family Medicine; Referring Provider Specialist; Visit Provider Specialist
DX: O47.03 False labor before 37 completed weeks of gestation, third trimester (principal); Z3A.33 33 weeks gestation of pregnancy
CPT/HCPCS: 59025; 81001; G0378; G0379

== ENCOUNTER → 2022-03-27 11:51 | Outpatient (CLI) | payer OTHER, SELFPAY ==
[2022-03-28 12:22] LABS: Strep Grp B PCR NEG for Grp B Strep
== END ==
PROVIDERS: PCP Family Medicine; Visit Provider Obstetrics & Gynecology
DX: Z34.83 Encounter for supervision of other normal pregnancy, third trimester (principal); Z3A.36 36 weeks gestation of pregnancy
CPT/HCPCS: 87653

== ENCOUNTER 2022-04-01 10:47 | Outpatient (CLI) | payer OTHER, SELFPAY | END 2022-04-01 11:37 | disposition home or self-care (01) | LOC: OB 04-02 08:02 | PROVIDERS: PCP Family Medicine; Referring Provider Obstetrics & Gynecology; Visit Provider Obstetrics & Gynecology | DX: Z03.71 Encounter for suspected problem with amniotic cavity and membrane ruled out (principal); Z3A.37 37 weeks gestation of pregnancy | CPT/HCPCS: 59025; 84112; G0378; G0379 ==

== ENCOUNTER → 2022-04-03 15:04 | Outpatient (CLI) | payer OTHER, SELFPAY ==
[2022-04-04 10:49] LABS: Urine N gonorrhoeae NOT DETECTED
[2022-04-04 10:51] LABS: Urine Chlamydia NOT DETECTED
== END ==
PROVIDERS: PCP Family Medicine; Visit Provider Obstetrics & Gynecology
DX: Z34.83 Encounter for supervision of other normal pregnancy, third trimester (principal); Z3A.37 37 weeks gestation of pregnancy
CPT/HCPCS: 87491; 87591

== ENCOUNTER 2022-04-08 18:58 | Inpatient (IN) | payer OTHER, SELFPAY ==
[2022-04-08 19:03] VITALS: BP 113/76
--- NOTE | 2022-04-08 20:20 | P.HPOB_ITS ---
OB HPI Date/Time Date of admission: 04/08/22 Date Patient Seen: 04/08/22 Time Patient Seen: 20:05 History of Present Condition Chief complaint: Labor MIKE Calculator Estimated Delivery Date Method Current WG Current Estimate 04/19/22 LMP (Certain) 38w 3d Other Estimates 04/15/22 Ultrasound #1 39w 0d Estimated Gestational Age (weeks): 38 : 2 Para: 1 Narrative: 26 yo presents at 38 weeks 3 days, reporting leakage of fluid started at 5:00 p.m with a small gush. Subsequently she had continued trickling of pink fluid. She reports some irregular contractions prior to the leakage, subsequently she developed regular contractions, but mildy uncomfortable yet. Rates contractions 4/10 on a pain scale. has been uncomplicated. care: good care Dating criteria OB: LMP confirmed by 1st trimester US Ultrasounds: normal mid trimester US (placenta previa, resolved on f/u US) Obstetrical complications: none Medical complications OB: none Preadmission Labs Last OB Lab Results: Blood Type O Positive 04/08/22 20:30 Antibody Screen Negative 04/08/22 20:30 Hematocrit 41.5 % (36-46) 04/08/22 20:30 Hemoglobin 14.1 g/dL (12.0-16.0) 04/08/22 20:30 Hepatitis B Surface Antigen Negative s/c (NEGATIVE) 09/24/21 17 :33 Hepatitis C Antibody Negative s/c (NEGATIVE) 09/24/21 17:33 Rubella Antibody 34.1 IU/mL (>15) 09/24/21 17:33 Varicella-Zoster IgG Antibody 243 index (Immune >165) 09/24/21 17:33 Glucose 1 Hour 77 mg/dL (76-139) 01/15/22 13:55 Group B Streptococcus (PCR) Neg for grp b strep 03/27/22 11:51 -: Chlamydia screen: negative and Gonorrhea screen: negative -: PAP smear: Normal (09/24/21) Genetic Screens: Alpha-fetoprotein: Normal Prior (ies) Past Pregnancies Del. Date GA/Weeks Labor Lgth Wt Sex Route Outcome Anesthesia Place Delv Breastfeed Preg Comp Name 07/15/19 37 10 6 lb 3 oz Male vaginal live - full term ep idural IH 1 month none Marco A Evaluation Evaluation Baseline heart rate: 130 Variability: Moderate (11-25) monitor accelerations: Present Monitor Decelerations: Absent Contraction Frequency (minutes): 3 Uterine Contraction Intensity: Mild Category of Tracing: Reactive Status: Category l Non-invasive Membranes Rupture Test: positive Comments: cervix 0/long 5 days ago. Not re-checked now. bedside US: vertex, low PFSH Medical History Atypical squamous cells cannot exclude high grade squamous intraepithelial lesion (ASC-H) on Papanicolao smear (~2015) Encounter for supervision of other normal , first trimester Headache (~2018) Healthy adult Migraine Surgical History Anesthesia No pertinent past surgical history [place] teeth removed Family History Family/Other Cancer Diabetes mellitus Depression Family/Other Cancer Depression Anxiety Grandmother Diabetes mellitus Depression Anxiety Hypertension Son Allergic eczema Social History marital status: number of children: 1 household members: spouse and children lives independently: Yes housing: condominium pets and animals: No education level: college (Trade School : [employer] ) occupational status: unemployed current occupational exposures/hazards: No special marguerite needs: No travel history: over 6 months ago leisure activities: exercise (3X/week) seatbelt use: always water heater temp set < 120 deg: Yes (Will check) working smoke detector in home: Yes fire extinguisher in home: Yes carbon monox detector in home: Yes firearms in home: Yes firearms unloaded and locked: Yes do you feel safe at home: Yes Smoking Status: Never smoker second hand exposure: No alcohol intake: former substance use type: does not use during the past year weight has: remained stable well-balanced diet: daily or most days daily servings fruits/ve-4 caffeine: Yes (Not since , aware of 200 mg limit) Type(s) of exercise: walking duration: 30-45 minutes/day Meds Home Medications and Allergies Home Medications Medication Instructions Recorded Confirmed Type prenat.vits,theodore,mcv-wysz-eytyt 1 tab PO DAILY 12/18/21 04/08/22 History Allergies Allergy/AdvReac Type Severity Reaction Status Date / Time No Known Drug Allergies Allergy Verified 04/03/22 10:38 OB Exam Narrative Exam Narrative: VS: Temp 36.3F, Pulse 75, BP 113/76 HENMT Head: normal to inspection Resp Effort & Inspection: normal respiratory effort Cardio Rate: regular rate Extremities Lower extremity: Yes normal to inspection Objective Labs Result Diagrams: 04/08/22 20:30 Assessment and Plan Assessment and Plan Assessment and Plan narrative: SROM @ 38 weeks' gestation, having regular contractions, but has not felt anything strong yet. During past hour here, she reports contractions becoming more uncomfortable, now mild - moderate. When from pain scale 4/10 to 6/10. Plan: Admit. Routine CBC and type and screen. Routine admission COVID screen. If no active labor in next few hours, then discussed Pitocin augmentation.
[2022-04-08 20:46] LABS: Add Manual Diff / Slide Review NO; Basophils Absolute Auto 0 /uL (0-100); Basophils Percent Auto 0.2 % (0-2); Eosinophils Absolute Auto 0 /uL (0-450); Eosinophils Percent Auto 0.5 % (2-4); Hematocrit 41.5 % (36-46); Hemoglobin 14.1 g/dL (12.0-16.0); Lymphocytes Absolute Auto 1900 /uL (1100-4500); Mean Corpuscular HGB Conc 33.9 % (30-36); Mean Corpuscular Hemoglobin 32.6 PG (26-34); Mean Corpuscular Volume 96.2 fL (80-100); Monocytes Absolute Auto 700 /uL (0-900); Monocytes Percent Auto 7.3 % (3-14); Neutrophils Absolute Auto 6800 /uL (1500-7000); Platelet Count 175 X10^3/uL (150-400); Red Blood Cell Count 4.32 X10^6/uL (4.0-5.2); Red Cell Distribution Width 13.3 % (11.6-14.8); White Blood Cell Count 9.5 X10^3/uL (4.5-11.0)
[2022-04-08 20:57] LABS: COVID19 -Nasal RAPID Negative (Negative)
[2022-04-08] MEDS: LACTATED RINGERS 1,000 ML 999 ML IV (23:07)
[2022-04-09] MEDS: LACTATED RINGERS 1,000 ML 100 ML IV (00:08)
[2022-04-09] MEDS: OXYTOCIN PREMIX 30 UNIT/500 ML PLAST..BAG 200 UNIT IV (01:15)
--- NOTE | 2022-04-09 01:35 | PM.OBPRVD ---
Labor & Delivery Delivery date: 04/09/22 Intrapartal Events: Deceleration (recurrent moserate to severe variable decelerations in 2nd stage) Cervical ripening method: none Induction method: none Delivery monitor: external FHT and external uterine Route of delivery: Episiotomy description: None L&D Laceration Description: None Quantitative Blood Loss: 150 Anesthesia Type: Epidural Complications: none Narrative: She progressed to completely dilated. She began pushing. With pushing EFM became category 2, with mild to moderate variable decelerations with contractions. Variable decelerations became more severe and she was placed from semi recumbent position to right lateral, then left lateral. EFM was better in left lateral position and she pushed in this position until she brought the baby to near . She was then placed back in the semi recumbent position. She pushed approximately 40 minutes and had a spontaneous vaginal delivery over an intact perineum from the CARLOS position. No nuchal cord was present. Anterior followed by posterior shoulders were delivered with ease with the patient pushing, followed by the remainder of the body. A baby girl was delivered at 0110. The baby cried spontaneously, appeared vigorous and was placed on the maternal abdomen. After 2 minutes, cord was clamped and then cut by the father.. Placenta delivered spontaneously 5 minutes later. She had minimal bleeding after delivery of the placenta. She was given routine Pitocin IV. On inspection she had no lacerations, only a minimal 0.5 cm abrasion at the end of the vagina at the posterior fourchette. She did well and was left to recover in good condition. Weight of the baby is pending. [place] Baby 1: Infant gender: Female Presentation: vertex Position: Right Occiput Anterior Placenta delivery description: Spontaneous Cord Vessel Description: 3 Vessels score (1 min): 9 score (5 min): 9 weight: 7 lb 9.5 oz Plan for aftercare: Routine care
[2022-04-09] MEDS: IBUPROFEN 600 MG TABLET PO ×3 (09:19→21:50)
[2022-04-09] MEDS: LANOLIN OINT 7 GM 1 APPLIC TOP (10:15)
--- NOTE | 2022-04-09 15:07 | P.PNOB_ITS ---
Subjective - OB Subjective Patient comments: no complaints and other (Lochia normal) [place] baby status: doing well and nursing well feeding status: exclusively breast feeding Date Patient Seen: 04/09/22 Time Patient Seen: 14:30 Exam Narrative Exam Narrative: General: Well-appearing female Abdomen: Soft, nontender, nondistended. Fundus U-1, firm, nontender Extremities: No pedal edema Objective Labs Result Diagrams: 04/08/22 20:30 Labs: Laboratory Results - last 24 hr 04/08/22 04/08/22 04/08/22 20:30 20:30 20:30 WBC 9.5 RBC 4.32 Hgb 14.1 Hct 41.5 MCV 96.2 MCH 32.6 MCHC 33.9 RDW 13.3 Plt Count 175 Neut % (Auto) 72.0 Lymph % (Auto) 20.0 L [place] % (Auto) 7.3 Eos % (Auto) 0.5 L Baso % (Auto) 0.2 Neut # (Auto) 6800 Lymph # (Auto) 1900 [place] # (Auto) 700 Eos # (Auto) 0 Baso # (Auto) 0 SARS-CoV-2 (PCR) Negative Blood Type O Positive Antibody Screen Negative Assessment & Plan Plan day: 1 plan OB: routine care Time Spent With Patient Time: Total time spent is greater than 50% in coordination of care (as documented) at patient's floor/unit and/or counseling patient: Time with patient: less than 15 minutes
[2022-04-09 15:39] VITALS: TEMP 36.7
[2022-04-10] MEDS: IBUPROFEN 600 MG TABLET PO (05:28)
--- NOTE | 2022-04-10 08:24 | PM.OBPN.1 ---
Subjective - OB Subjective Patient comments: no complaints Objective Labs Result Diagrams: 04/08/22 20:30 Assessment & Plan Time Spent With Patient Time: Total time spent is greater than 50% in coordination of care (as documented) at patient's floor/unit and/or counseling patient:
--- NOTE | 2022-04-10 08:41 | PM.OBDS.1 ---
Discharge Providers Provider Date of admission: 04/08/22 18:58 Discharge Date: 04/10/22 Primary care physician: Donna Griffin DO Consults: 04/10/22 01:38 Consult to [employer] Routine Comment: Discharge provider: Lisha Corona MD Summary Hospital Course Date Patient Seen: 04/10/22 Time Patient Seen: 07:45 Diagnoses: 38 week delivered Spontaneous rupture membranes. Spontaneous vaginal delivery Hospital Course: Hannah is a 26 yo female who presented at 38 weeks with spontaneous rupture membranes. She soon developed regular contractions which gradually became more uncomfortable and she developed spontaneous labor. She progressed in labor to completely dilated. She had a spontaneous vaginal delivery of a female infant weighing 7 lb 9 oz. with Apgars of 9 and 9. She did not have any obstetrical lacerations. Her course has been uncomplicated. she is day 2. She feels well. Her lochia is normal. She is without problems. The baby is doing well and is okay for discharge home. She is being discharged in good condition. Six week visit will be scheduled. Peripartum Data Infant Delivery Method: Natural Vaginal Laceration Description: None complications: none [place] 1: Gender: Female Disposition of : home Discharge Diagnosis (1) Normal spontaneous vaginal delivery: Status: Acute Problem Details: 38 weeks, spontaneous rupture membranes followed by spontaneous labor. Status at Discharge Cognitive/behavioral status at discharge: oriented and at baseline, oriented Time Spent with Patient Time attestation: Total time spent providing and/or coordinating discharge services: Time spent: Less than 30 minutes Objective Labs Result Diagrams: 04/08/22 20:30 Exam Vital Signs (past 8 hours): Temp 97F BP 105/70 Pulse 56 RR 16 Narrative Exam Narrative: General: Well-appearing female Abdomen: Soft, nontender, nondistended. Fundus @U, firm, nontender Extremities: Trace pedal edema Discharge Plan Discharge Plan Patient Disposition: Home Provider Discharge Comment: Status post spontaneous vaginal delivery at term Discharge orders & Medications Prescriptions: Continued prenat.vits,theodore,[id number] Tablet 1 tab PO DAILY Follow up/Referrals: Lisha Corona MD [Physician] - (Post 6 week follow up appt with Dr. Corona on 05/22/2022 @ 1:45pm) Donna Griffin DO [Primary Care Provider] - Discharge Health Status Multidrug resistant organism: No MDRO Diet/Activity/Treatments Diet: Regular Activity: Nothing in the vagina for 6 weeks, no tampons and no intercourse Visit Report/Discharge Packet Instructions: DI for Labor and Delivery, Vaginal Stand Alone Forms: Discharge: Care Discharge Data Primary Care Provider: Donna Griffin
[2022-04-10 08:54] VITALS: BP 105/72; PULSE 56; RESP 18; TEMP 36.1
== END 2022-04-10 10:45 | disposition home or self-care (01) | DRG 807 ==
PROVIDERS: Admitting Provider Obstetrics & Gynecology; PCP Family Medicine; Referring Provider Obstetrics & Gynecology; Visit Provider Obstetrics & Gynecology
DX: O42.02 Full-term premature rupture of membranes, onset of labor within 24 hours of rupture (principal); Z37.0 Single live birth; O76 Abnormality in fetal heart rate and rhythm complicating labor and delivery; Z3A.38 38 weeks gestation of pregnancy; Z20.822 Contact with and (suspected) exposure to COVID-19
CPT/HCPCS: 59025; 59050; 59400; 59409; 76815; 84112; 85025; 86850; 86900; 86901; 87635; C9803; G0379; J2590

== ENCOUNTER → 2022-05-22 15:20 | Outpatient (CLI) | payer OTHER, SELFPAY ==
[2022-05-24 08:09] LABS: Candida species Negative (Negative); Gardnerella vaginalis Positive (Negative); Trichomoas vaginalis Negative (Negative)
== END ==
PROVIDERS: PCP Family Medicine; Visit Provider Obstetrics & Gynecology
DX: N89.8 Other specified noninflammatory disorders of vagina (principal)
CPT/HCPCS: 87480; 87510; 87660

== ENCOUNTER → 2022-11-11 12:33 | Outpatient (CLI) | payer OTHER, SELFPAY | PROVIDERS: PCP Family Medicine; Visit Provider Nurse Practitioner Family | DX: J02.9 Acute pharyngitis, unspecified (principal) | CPT/HCPCS: 87070; 87147 ==

== ENCOUNTER → 2023-01-20 10:01 | Outpatient (CLI) | payer OTHER, SELFPAY ==
[2023-01-20 12:04] LABS: Alanine Aminotransferase 15 IU/L (<35); Albumin 4.2 g/dL (3.5-5.0); Albumin Globulin Ratio 1.4 (1.0-2.8); Alkaline Phosphatase 62 U/L (38-126); Aspartate Aminotransferase 21 IU/L (14-36); BUN Creatinine Ratio 25.5 (6-22); Bilirubin Total 0.4 mg/dL (0.2-1.3); Blood Urea Nitrogen 14 mg/dL (7-17); Calcium 9.4 mg/dL (8.4-10.2); Carbon Dioxide 28 mmol/L (22-32); Chloride 103 mmol/L (98-107); Cholesterol 164 mg/dL (140-199); Estimated Glomerular Filt Rate > 60 mL/min (>60); Globulin 2.9 g/dL (1.7-4.1); Glucose 88 mg/dL (70-100); HDL Cholesterol 61 mg/dL (40-60); HEMOLYSIS < 15 (0-50); LDL Cholesterol Calculated 93 mg/dL (<100); Potassium 4.1 mmol/L (3.4-5.1); Sodium 139 mmol/L (137-145); Total Protein 7.1 g/dL (6.3-8.2); Triglycerides 49 mg/dL (35-150)
== END ==
PROVIDERS: PCP Family Medicine; Referring Provider Family Medicine; Visit Provider Family Medicine
DX: Z00.00 Encounter for general adult medical examination without abnormal findings (principal); Z39.1 Encounter for care and examination of lactating mother; Z30.09 Encounter for other general counseling and advice on contraception
CPT/HCPCS: 36415; 80053; 80061

== ENCOUNTER → 2023-08-18 11:18 | Outpatient (CLI) | payer OTHER, SELFPAY ==
[2023-08-18 13:02] LABS: Alanine Aminotransferase 13 IU/L (<35); Albumin 4.1 g/dL (3.5-5.0); Albumin Globulin Ratio 1.2 (1.0-2.8); Alkaline Phosphatase 54 U/L (38-126); Aspartate Aminotransferase 24 IU/L (14-36); Bilirubin Total 0.7 mg/dL (0.2-1.3); Bilirubin Unconjugated 0.5 mg/dL (0.0-1.1); Globulin 3.3 g/dL (1.7-4.1); HEMOLYSIS < 15 (0-50); Total Protein 7.4 g/dL (6.3-8.2)
== END ==
PROVIDERS: PCP Family Medicine; Referring Provider Family Medicine; Visit Provider Family Medicine
DX: B35.1 Tinea unguium (principal); B35.3 Tinea pedis
CPT/HCPCS: 36415; 80076

== ENCOUNTER → 2024-03-30 08:39 | Outpatient (CLI) | payer OTHER, SELFPAY | PROVIDERS: PCP Family Medicine; Visit Provider Family Medicine | DX: Z00.00 Encounter for general adult medical examination without abnormal findings (principal); N89.8 Other specified noninflammatory disorders of vagina; R10.13 Epigastric pain; Z39.1 Encounter for care and examination of lactating mother | CPT/HCPCS: 87210 ==

== ENCOUNTER → 2024-10-13 10:54 | Outpatient (CLI) | payer OTHER, SELFPAY ==
[2024-10-13 11:51] LABS: Add Manual Diff / Slide Review NO; Basophils Absolute Auto 0 /uL (0-100); Basophils Percent Auto 0.7 % (0-2); Eosinophils Absolute Auto 100 /uL (0-450); Eosinophils Percent Auto 1.4 % (2-4); Hemoglobin 13.8 g/dL (12.0-16.0); Lymphocytes Absolute Auto 2300 /uL (1100-4500); Lymphocytes Percent Auto 39.2 % (25-40); Mean Corpuscular HGB Conc 33.6 % (30-36); Mean Corpuscular Hemoglobin 31.4 PG (26-34); Mean Corpuscular Volume 93.5 fL (80-100); Monocytes Absolute Auto 400 /uL (0-900); Monocytes Percent Auto 6.1 % (3-14); Neutrophils Absolute Auto 3100 /uL (1500-7000); Neutrophils Percent Auto 52.6 % (50-75); Platelet Count 194 X10^3/uL (150-400); Red Blood Cell Count 4.39 X10^6/uL (4.0-5.2); Red Cell Distribution Width 12.8 % (11.6-14.8); White Blood Cell Count 5.8 X10^3/uL (4.5-11.0)
[2024-10-13 12:14] LABS: Alanine Aminotransferase 14 IU/L (<35); Albumin 4.3 g/dL (3.5-5.0); Albumin Globulin Ratio 1.5 (1.0-2.8); Alkaline Phosphatase 43 U/L (38-126); Aspartate Aminotransferase 22 IU/L (14-36); BUN Creatinine Ratio 20.7 (6-22); Bilirubin Total 0.5 mg/dL (0.2-1.3); Blood Urea Nitrogen 12 mg/dL (7-17); Calcium 9.2 mg/dL (8.4-10.2); Carbon Dioxide 27 mmol/L (22-32); Chloride 105 mmol/L (98-107); Cholesterol 165 mg/dL (140-199); Estimated Glomerular Filt Rate > 60 mL/min (>60); Globulin 2.9 g/dL (1.7-4.1); Glucose 65 mg/dL (70-99); HDL Cholesterol 56 mg/dL (40-60); HEMOLYSIS < 15 (0-50); LDL Cholesterol Calculated 89 mg/dL (<100); Potassium 4.2 mmol/L (3.4-5.1); Sodium 138 mmol/L (137-145); Total Protein 7.2 g/dL (6.3-8.2); Triglycerides 100 mg/dL (35-150)
== END ==
PROVIDERS: PCP Family Medicine; Referring Provider Family Medicine; Visit Provider Family Medicine
DX: Z00.00 Encounter for general adult medical examination without abnormal findings (principal); R10.13 Epigastric pain; N89.8 Other specified noninflammatory disorders of vagina; Z39.1 Encounter for care and examination of lactating mother
CPT/HCPCS: 36415; 80053; 80061; 85025

== ENCOUNTER → 2025-03-25 11:58 | Outpatient (CLI) | payer OTHER, SELFPAY ==
--- NOTE | 2025-03-25 11:59 | DI.US.S_ITS ---
PROCEDURE: US SOFT TISSUE HEAD AND NECK INDICATIONS: LEFT NECK PAIN/BURNING TECHNIQUE: Real-time scanning was performed of the neck region of interest, with image documentation. COMPARISON: None. FINDINGS AND IMPRESSION: At the areas of clinical concern in the neck bilaterally, no abnormal appearing lymph node, fluid collection, or other mass lesion identified. Clinical followup is recommended. If there is new or worsening clinical concern, reimaging could be obtained. Dictated by: Oj Whitten M.D. on 03/25/2025 at 13:31 Approved by: Oj Whitten M.D. on 03/25/2025 at 13:31
== END ==
PROVIDERS: PCP Family Medicine; Referring Provider Family Medicine; Visit Provider Family Medicine
DX: R07.0 Pain in throat (principal)
CPT/HCPCS: 76536

== ENCOUNTER → 2025-04-12 13:21 | Outpatient (CLI) | payer OTHER, SELFPAY | PROVIDERS: PCP Family Medicine; Visit Provider Physician Assistant | DX: N89.8 Other specified noninflammatory disorders of vagina (principal); Z11.3 Encounter for screening for infections with a predominantly sexual mode of transmission | CPT/HCPCS: 87210 ==

== ENCOUNTER → 2025-04-12 13:29 | Outpatient (CLI) | payer OTHER, SELFPAY ==
[2025-04-12 15:32] LABS: HIV 1 & 2 Ab/Ag 4th Gen Combo NEGATIVE (NEGATIVE)
== END ==
PROVIDERS: PCP Family Medicine; Referring Provider Family Medicine; Visit Provider Physician Assistant
DX: Z11.3 Encounter for screening for infections with a predominantly sexual mode of transmission (principal)
CPT/HCPCS: 36415; 87210; 87389